=== PATIENT | male | born 1985 | race Caucasian/White ===

== ENCOUNTER 2021-08-03 00:56 | Emergency (ER) | payer OTHER ==
[~2021-08-03] VITALS: Ht 175.3 cm; Wt 81.6 kg
[2021-08-03 01:41] VITALS: BP 140/79
[2021-08-03] MEDS ORDERED: DIPH25TA53 PO (03:18)
[2021-08-03] MEDS ORDERED: PERM5CRE3 TP (03:18)
[2021-08-03 03:37] VITALS: BP 115/70
--- NOTE | 2021-08-03 03:42 | NUR ---
PATIENT EVALED AND DC BY ER . AOX4. AMBULATORY WITH STEADY GAIT. RX TOPICAL PROVIDED FOR SCABIES. SKIN INTACT. PATIENT BELONGINGS RECONCILED AND VERBALIZED UNDERSTANDING FOR CARE OF SELF.
== END 2021-08-03 03:30 | disposition home or self-care (01) ==
LOC: MED 00:56
DX: B86 Scabies (principal); Z79.899 Other long term (current) drug therapy
CPT/HCPCS: 99281